=== PATIENT | female | born 1935 | race Caucasian/White ===

== ENCOUNTER 2018-10-07 10:04 | Inpatient (IN) | payer MEDICARE, OTHER ==
[~2018-10-07] VITALS: Ht 165.1 cm; Wt 88.4 kg
--- NOTE | 2018-10-07 10:15 | NUR ---
patient obtained patient arrived a&ox4 with no c/o pain or distress via wheelchair. patient present with llq perineal drain. bilateral leg swelling noted. educated patient to only get up with assist and environmental services assistant light use prn. patient verbalized understanding. continuing to monitor q1hr
[2018-10-07] MEDS ORDERED: DEXTROSE (50%) 50ML SYRG IV PRN (10:30)
[2018-10-07] MEDS ORDERED: HYDROcodone-ACET 5/325MG TAB PO PRN (10:30)
[2018-10-07 11:49] VITALS: BP 108/49
[2018-10-07 11:50] LABS: Hematocrit 24.7 % (36.0-46.0); Hemoglobin 7.9 g/dL (12.2-16.2); Mean Corpuscular Hgb Conc. 31.8 g/dL (32.0-36.0); Mean Corpuscular Volume 75.5 fL (80.0-100.0); Platelet Count (auto) 225 10^3/uL (140-450); Red Blood Cells 3.28 10^6/uL (4.0-5.20); Red Cell Distribution Width 19.9 % (11.8-14.3); White Blood Cell 17.1 10^3/uL (4.4-10.8)
[2018-10-07 11:54] LABS: Blast Cells 0; Myelocytes % 0; Promyelocytes % 0; Reactive Lymphocytes 0
[2018-10-07] MEDS: InsuLIN REG 1unit/0.01ml Soln (100units/ml) SC SCH ×2 (12:00→18:00)
[2018-10-07] MEDS: ACCU-CHEK COMFORT CURVE STRIP VI SCH ×2 (12:00→18:00)
[2018-10-07 12:09] LABS: Albumin 1.1 g/dL (3.4-5.0); Anion Gap 7 (5-15); Blood Urea Nitrogen 29 mg/dL (7-18); Calcium 7.4 mg/dL (8.5-10.1); Carbon Dioxide 27 mmol/L (21-32); Chloride 104 mmol/L (98-107); Glucose 154 mg/dL (74-106); Potassium 3.6 mmol/L (3.5-5.1); Sodium 138 mmol/L (136-145)
[2018-10-07 12:13] LABS: Alanine Aminotransferase < 6 U/L (13-56); Alkaline Phosphatase 236 U/L (45-117); Aspartate Aminotransferase 15 U/L (15-37); BUN/Creatinine Ratio 19.7; Bilirubin, Total 0.8 mg/dL (0.2-1.0); GFR African American 44 mL/min; GFR Non-African American 36 mL/min; Total Protein 7.7 g/dL (6.4-8.2)
[2018-10-07 12:25] LABS: INR 1.27 (0.9-1.15); Partial Thromboplastin Time 38.4 sec (23.64-32.05)
[2018-10-07] MEDS ORDERED: IOHEXOL 300 MG/ML 100ML BOTTLE IJ ONE (12:32)
[2018-10-07 13:00] VITALS: BP 108/56
[2018-10-07] MEDS: FAMOTIDINE (10MG/ML) 2ML VL IV SCH (13:15)
[2018-10-07] MEDS ORDERED: cefTRIAXone 1GM/50ML D5W 50 ML IV ONE (13:15)
[2018-10-07] MEDS ORDERED: MORPHINE SULF INJ 2 MG/ML SYRINGE 1ML IV ONE (13:45)
[2018-10-07] MEDS ORDERED: LORazepam 2MG/ML-1ML VIAL IV PRN (13:45)
[2018-10-07 15:52] VITALS: BP 104/51
--- NOTE | 2018-10-07 15:53 | NUR ---
BEDSIDE PARACENTESIS AT BEDSIDE ASSISTING DR. BENJAMIN WITH PROCEDURE. ACCESS POINT ON RIGHT UPPER ABDOMEN. VITAL SIGNS STABLE THROUGHOUT PROCEDURE. ORDERS FOR SPECIMEN PLACED IN [facility] PER DR. BENJAMIN FOR BODY FLUID CULTURE. TOTAL OUT WAS 150 ML OF YELLOW GREENISH PURULENT THICK FLUID. SPECIMEN SENT TO [facility] WITH [facility] SERVICE SUPERVISOR FOR CULTURE. VITAL SIGNS STABLE AT END OF PROCEDURE. PATIENT TOLERATED WELL. NO BLEEDING AT INSERTION SITE NOTED AT THIS TIME. REPORT GIVEN TO PRIMARY RN CHAN.
[2018-10-07 16:24] LABS: Band Neutrophils % (manual) 4; Basophils % (manual) 1 (0.0-2.0); Eosinophils % (manual) 2 (0-7); Lymphocytes % (manual) 9 (10.0-50.0); Metamyelocytes % 1; Monocytes % (manual) 8 (0-12)
[2018-10-07 17:00] VITALS: BP 102/56
--- NOTE | 2018-10-07 19:30 | NUR ---
Opening Shift Note Assumed care of patient, awake and alert x4. No S/S of distress/SOB or pain. Family is at bedside. Instructed on POC and to call for assist PRN, will continue to monitor for changes Q1hr and PRN.
[2018-10-07 21:38] VITALS: BP 116/55
[2018-10-08] MEDS: ACCU-CHEK COMFORT CURVE STRIP VI SCH ×5 (00:14→23:14)
[2018-10-08] MEDS: InsuLIN REG 1unit/0.01ml Soln (100units/ml) SC SCH ×5 (00:15→23:14)
--- NOTE | 2018-10-08 00:34 | NUR ---
Urine sample collected and sent to lab via [employer] system.
[2018-10-08 01:47] LABS: Urine Bacteria FEW /hpf (None Seen); Urine Blood 1+ /uL (Negative); Urine WBC 3 /hpf (0 - 5)
[2018-10-08] MEDS: MORPHINE SULF INJ 2 MG/ML SYRINGE 1ML IV PRN ×2 (04:24→17:21)
[2018-10-08 05:21] VITALS: BP 102/53
[2018-10-08 06:21] LABS: Basophils # (auto) 0.1 uL; Eosinophils # (auto) 0.2 uL; Neutrophils # (auto) 13.7 uL; Nucleated Red Blood Cells % 0.1 %; Platelet Count (auto) 215 10^3/uL (140-450)
[2018-10-08 06:24] LABS: Basophils % (auto) 0.3 % (0.0-2.0); Eosinophils % (auto) 1.3 % (0.0-7.0); Hematocrit 24.7 % (36.0-46.0); Hemoglobin 7.9 g/dL (12.2-16.2); Lymphocytes # (auto) 2.1 uL; Lymphocytes % (auto) 12.2 % (10.0-50.0); Mean Corpuscular Hemoglobin 24.2 pg (28.0-32.0); Mean Corpuscular Hgb Conc. 32.1 g/dL (32.0-36.0); Mean Corpuscular Volume 75.3 fL (80.0-100.0); Monocytes # (auto) 1.3 uL; Monocytes % (auto) 7.4 % (0.0-12.0); Neutrophils % (auto) 78.8 % (37.0-80.0); Red Blood Cells 3.28 10^6/uL (4.0-5.20); Red Cell Distribution Width 20.2 % (11.8-14.3); White Blood Cell 17.3 10^3/uL (4.4-10.8)
[2018-10-08 06:42] LABS: BUN/Creatinine Ratio 22.1; Calcium 7.3 mg/dL (8.5-10.1); Potassium 3.2 mmol/L (3.5-5.1)
--- NOTE | 2018-10-08 07:44 | NUR ---
Opening Shift Note Assumed care of patient, patient sitting up in bed with 2 L NC, awake and alertx3. No S/S of distress/SOB or pain. Instructed on POC and to call for assist PRN, will continue to monitor for changes Q1hr and PRN Bed at lowest locked position , side rails upx2 and call light within reach. .
[2018-10-08 08:00] VITALS: BP 117/54
--- NOTE | 2018-10-08 08:00 | NUR ---
WOUND CARE NOTE: IN TO SEE PATIENT AT THIS TIME D/T WOUND CARE CONSULT REQUEST. PATIENT WAS NOTED UPON ADMIT TO HAVE NON BLANCHING SKIN TO SACRUM. WOUND PHOTO TAKEN, WOUND CONSULT ORDERED BY BEDSIDE NURSE AT THAT TIME. PATIENT ADMITTED TO [facility] WITH DIAGNOSIS OF COLON CANCER. PATIENT IS ABLE TO ASSIST WITH HER TURNING/REPOSITIONING, BUT DOES NEED ASSISTANCE. PATIENT ADMITS TO WEARING A DIAPER. SHE HAS MASD NOTED TO SACRAL/BUTTOCKS SKIN. SKIN IS DARK RED WITH NON BLANCHING AND BLANCHING REDNESS NOTED. PATIENT EDUCATED ON DIAPER USAGE AND MOISTURE MANAGEMENT/SKIN CARE. PATIENT VERBALIZED UNDERSTANDING. RECOMMEND: FREQUENT TURN SCHEDULE Q 2 HOURS, PRN CONDITION PERMITS, WITH PRESSURE REDISTRIBUTION USING PILLOWS/WEDGES, BID/PRN APPLICATION WITH MOISTURE BARRIER CREAM, OPTIFOAM GENTLE SACRAL DRESSING, DIETARY CONSULT, CONTINUED MONITORING BY WOUND CARE TEAM. SKIN/WOUND CARE PLAN IMPLEMENTED AT THIS TIME. Addendum: 10/08/18 at 1221 by Evelyn Vail RN Amended: Links added.
[2018-10-08] MEDS: FAMOTIDINE (10MG/ML) 2ML VL IV SCH (09:40)
[2018-10-08] MEDS: cefTRIAXone 1GM/50ML D5W 50 ML IV SCH (09:40)
[2018-10-08] MEDS ORDERED: PANTOPRAZOLE 40 MG TAB PO ONE (10:45)
[2018-10-08] MEDS ORDERED: POTASSIUM CHL 20 Meq TABLET PO ONE (11:00)
--- NOTE | 2018-10-08 11:56 | NUR ---
NUTRITION CONSULT/ASSESSMENT NOTES Please refer to link notes of nutrition screen form filed under the intervention section of the plan of care for further details. Est. Needs: 1700 kcal to 2150 kcal (25-30 kcal/kgBW), 84 gms to 126 gms pro (1.0-1.5 gms/kgBW d/t severe hypoalbuminemia, CA w/ mets). Will continue to monitor pertinent labs and reassess nutrient need prn Thank you for this consult. Addendum: 10/08/18 at [address] Amended: Links added.
[2018-10-08] MEDS ORDERED: Ensure Enlive Strawberry 8oz Bottle PO SCH (12:00)
[2018-10-08 13:22] VITALS: BP 108/50
[2018-10-08 17:00] VITALS: BP 118/60
[2018-10-08] MEDS: metroNIDAZOLE 500MG/100ML 100 ML IV SCH ×2 (17:21→22:14)
[2018-10-08] MEDS: Glucerna Carbsteady SHAKE Vanilla 8oz PO SCH (18:00)
--- NOTE | 2018-10-08 19:30 | NUR ---
Report re. and care of pt received from JAI Weller. Pt up to BSC. No c/o pain. No s/sx resp distress. Bed in low position. Nurse call light at bedside.
--- NOTE | 2018-10-08 19:53 | NUR ---
Pt assisted into chair at bedside with nurse call light placed on OBT next to her. Pillow in chair and behind her back. Grandson and a female here visiting. Visiting hours reviewed with pt and visitors. Kelly, Daniel Fuentes, out to nurses' station asking questions as to when pt would be discharged tomorrow. Explained to him that he needs to ask pt or Reid, pt's son, as these are the only ones to whom information can be given. son reluctantly VU and agreement after cont to try to get information without success.
[2018-10-08 21:30] VITALS: BP 130/64
--- NOTE | 2018-10-08 21:30 | NUR ---
Pt's head charrer in to visit with her and pray. Pt more upbeat after visit and sharing accounts of her life with this RN.
--- NOTE | 2018-10-09 04:09 | NUR ---
This RN heard pt calling out, "Mama!" repeatedly; entered room to find pt diagonal in bed wanting to get to BSC in a hurry. Assisted pt onto BSC, placing nurse call light beside her with instructions on how to call when she is ready to get back into bed.
[2018-10-09 05:00] VITALS: BP 118/79
[2018-10-09] MEDS: metroNIDAZOLE 500MG/100ML 100 ML IV SCH ×3 (05:33→21:42)
[2018-10-09] MEDS: ACCU-CHEK COMFORT CURVE STRIP VI SCH ×4 (05:47→23:47)
[2018-10-09] MEDS: InsuLIN REG 1unit/0.01ml Soln (100units/ml) SC SCH ×4 (05:48→23:47)
[2018-10-09 05:51] LABS: Hemoglobin 8.6 g/dL (12.2-16.2); Mean Corpuscular Volume 76.4 fL (80.0-100.0)
[2018-10-09 05:54] LABS: Hematocrit 27.4 % (36.0-46.0); Mean Corpuscular Hgb Conc. 31.5 g/dL (32.0-36.0); Platelet Count (auto) 259 10^3/uL (140-450); Red Blood Cells 3.59 10^6/uL (4.0-5.20); White Blood Cell 16.2 10^3/uL (4.4-10.8)
[2018-10-09 06:20] LABS: Red Cell Distribution Width 20.4 % (11.8-14.3)
[2018-10-09 06:21] LABS: Basophils % (manual) 0 (0.0-2.0); Blast Cells 0; Metamyelocytes % 0; Myelocytes % 0; Promyelocytes % 0; Reactive Lymphocytes 0
[2018-10-09 07:01] LABS: Band Neutrophils % (manual) 1; Eosinophils % (manual) 2 (0-7); Lymphocytes % (manual) 10 (10.0-50.0); Monocytes % (manual) 9 (0-12)
[2018-10-09] MEDS: Glucerna Carbsteady SHAKE Vanilla 8oz PO SCH ×2 (08:00→18:00)
[2018-10-09 09:00] VITALS: BP 111/54
[2018-10-09] MEDS: PANTOPRAZOLE 40 MG TAB PO SCH (09:23)
[2018-10-09] MEDS: FAMOTIDINE (10MG/ML) 2ML VL IV SCH (09:23)
[2018-10-09] MEDS: cefTRIAXone 1GM/50ML D5W 50 ML IV SCH (09:24)
--- NOTE | 2018-10-09 10:00 | NUR ---
IV INSERTION NEW IV INSERTED TO LEFT FOREARM 22G IN X1 ATTEMPT. PATIENT TOLERATED WELL. IV FLUSHED WITH 10ML NS AND DRESSING CLEAN DRY AND INTACT. CONTINUING TO MONITOR. IV TO LEFT AC REMOVED USING CLEAN STERILE TECHNIQUE, CATHETER INTACT UPON REMOVAL, PRESSURE DRESSING APPLIED.
--- NOTE | 2018-10-09 10:15 | NUR ---
AT BEDSIDE DR C[place]AND AT BEDSIDE AT THIS TIME. NO NEW ORDERS RECEIVED. CONTINUING TO MONITOR.
[2018-10-09] MEDS: MORPHINE SULF INJ 2 MG/ML SYRINGE 1ML IV PRN ×2 (10:26→21:42)
[2018-10-09] MEDS: HYDROcodone-ACET 5/325MG TAB PO SCH ×3 (12:00→21:42)
[2018-10-09 12:58] VITALS: BP 121/63
[2018-10-09 17:00] VITALS: BP 120/62
--- NOTE | 2018-10-09 19:03 | NUR ---
END OF SHIFT NOTE PATIENT AWAKE AND ALERT SITTING UP ON SIDE OF BED EATING DINNER. NO S/S OF DISTRESS OR SOB NOTED. BED IN LOWEST LOCKED POSITION, CALL LIGHT WITHIN REACH. WILL ENDORSE CARE TO NOC RN.
--- NOTE | 2018-10-09 19:30 | NUR ---
Opening Shift Note Assumed care of patient, awake and alert at the moment, states her name, and location. No S/S of distress/SOB or pain. Bed locked in lowest position, side rails upx2, call light within reach. Instructed on POC and to call for assist PRN, will continue to monitor for changes Q1hr and PRN.
[2018-10-09 22:00] VITALS: BP 123/57
--- NOTE | 2018-10-10 02:23 | NUR ---
Pt OOB sitting in chair, no c/o of distress. Will continue to monitor.
[2018-10-10] MEDS: MORPHINE SULF INJ 2 MG/ML SYRINGE 1ML IV PRN (04:02)
[2018-10-10 05:32] VITALS: BP 113/59
[2018-10-10] MEDS: HYDROcodone-ACET 5/325MG TAB PO SCH ×2 (06:00→12:00)
[2018-10-10] MEDS: ACCU-CHEK COMFORT CURVE STRIP VI SCH ×2 (06:09→12:00)
[2018-10-10] MEDS: metroNIDAZOLE 500MG/100ML 100 ML IV SCH ×2 (06:09→14:14)
[2018-10-10] MEDS: InsuLIN REG 1unit/0.01ml Soln (100units/ml) SC SCH ×2 (06:09→12:00)
[2018-10-10 06:27] LABS: Basophils # (auto) 0 uL; Basophils % (auto) 0.3 % (0.0-2.0)
[2018-10-10 06:29] LABS: Eosinophils # (auto) 0.2 uL; Eosinophils % (auto) 1.2 % (0.0-7.0); Hematocrit 24.7 % (36.0-46.0); Lymphocytes # (auto) 1.2 uL; Lymphocytes % (auto) 8.5 % (10.0-50.0); Mean Corpuscular Hemoglobin 24.7 pg (28.0-32.0); Mean Corpuscular Hgb Conc. 32.3 g/dL (32.0-36.0); Mean Corpuscular Volume 76.4 fL (80.0-100.0); Monocytes # (auto) 1.3 uL; Monocytes % (auto) 9.2 % (0.0-12.0); Neutrophils # (auto) 11.1 uL; Neutrophils % (auto) 80.8 % (37.0-80.0); Nucleated Red Blood Cells % 0.1 %; Platelet Count (auto) 190 10^3/uL (140-450); Red Blood Cells 3.23 10^6/uL (4.0-5.20); Red Cell Distribution Width 19.8 % (11.8-14.3); White Blood Cell 13.8 10^3/uL (4.4-10.8)
--- NOTE | 2018-10-10 07:30 | NUR ---
Opening Shift Note RECEIVED REPORT FROM NOC RN. Assumed care of patient, awake and alert. PATIENT ON OXYGEN AT 2 LPM VIA NASAL CANNULA WITH no S/S of distress/SOB or pain. BED IN LOWEST, LOCKED POSITION WITH SIDERAILS UP x2. Instructed on POC and to call for assist PRN, will continue to monitor for changes Q1hr and PRN.
[2018-10-10 08:05] VITALS: BP 114/52
[2018-10-10 09:00] VITALS: BP 114/56
[2018-10-10] MEDS: cefTRIAXone 1GM/50ML D5W 50 ML IV SCH (09:06)
[2018-10-10] MEDS: Glucerna Carbsteady SHAKE Vanilla 8oz PO SCH (09:07)
[2018-10-10] MEDS: PANTOPRAZOLE 40 MG TAB PO SCH (10:20)
[2018-10-10] MEDS: FAMOTIDINE (10MG/ML) 2ML VL IV SCH (10:20)
--- NOTE | 2018-10-10 10:33 | NUR ---
DR. THOMAS AT BEDSIDE.
--- NOTE | 2018-10-10 11:35 | NUR ---
GERRY FROM [facility] [place] ADVISING TRANSPORTATION WILL ARRIVE AT 1700. TRANSPORTATION THROUGH [facility].
[2018-10-10 13:00] VITALS: BP 121/50
[2018-10-10 14:53] VITALS: BP 121/50
--- NOTE | 2018-10-10 17:05 | NUR ---
Discharge instructions given as ordered. Encourage to follow up with PMD as instructed. All questions and concerns addressed. Patient verbalized understanding. Medication reconciliation form completed and copy given to patient. IV removed with catheter intact, pressure dressing applied. Patient taken to [facility] via [facility] with all personal belongings. No distress noted at time of departure.
== END 2018-10-10 17:21 | disposition hospice, home (50) | DRG 871 ==
LOC: TELE-CENTR 10:04 → CENTRAL 19:36
PROVIDERS: ADMIT Internal Medicine; ATTEND Internal Medicine
PROC: 0W9G3ZZ Drainage of Peritoneal Cavity, Percutaneous Approach (ICD-10-PCS; principal; 2018-10-07)
DX: A41.02 Sepsis due to Methicillin resistant Staphylococcus aureus (principal); K65.9 Peritonitis, unspecified; C79.9 Secondary malignant neoplasm of unspecified site; C18.9 Malignant neoplasm of colon, unspecified; R18.8 Other ascites; E44.0 Moderate protein-calorie malnutrition; E11.22 Type 2 diabetes mellitus with diabetic chronic kidney disease; I12.9 Hypertensive chronic kidney disease with stage 1 through stage 4 chronic kidney disease, or unspecified chronic kidney disease; N18.3 Chronic kidney disease, stage 3 (moderate); D64.9 Anemia, unspecified; E66.9 Obesity, unspecified; Z68.32 Body mass index [BMI] 32.0-32.9, adult; Z90.49 Acquired absence of other specified parts of digestive tract; Z92.21 Personal history of antineoplastic chemotherapy; Z79.84 Long term (current) use of oral hypoglycemic drugs
CPT/HCPCS: 10022; 36415; 49083; 71045; 74177; 76705; 76942; 80048; 80053; 81001; 82962; 83036; 85007; 85025; 85027; 85610; 85730; 87077; 87081; 87186; 87205; 89051; 97110; 97116; 97530; G0378; J0696; J1815; J3490